=== PATIENT | male | born 1975 | race Caucasian/White ===

== ENCOUNTER 2016-12-11 17:56 | Emergency (ER) | payer SELFPAY ==
[~2016-12-11] VITALS: Ht 170.2 cm; Wt 85.3 kg
[2016-12-11 18:33] VITALS: BP 176/118
--- NOTE | 2016-12-11 20:19 | NUR ---
Patient ambulated to bed 03.
--- NOTE | 2016-12-11 20:25 | NUR ---
Dr. Wiley evaluating patient at bedside.
--- NOTE | 2016-12-11 20:29 | NUR ---
PATIENT IS A 41 Y/O MALE WHO PRESENTS TO THE ED C/O OF HIGH BLOOD PRESSURE. PT STATES THAT HE TOOK TWO TABS OF LOSARTAN 50 MG THIS MORNING AND STATED THAT HE DIDN'T FEEL FINE. PT STATES THAT HE HAS HAD SOME NAUSEA SINCE THIS MORNING. PT DENIES HEADACHE, DENIES CHEST PAIN. PT STATES 0/10 PAIN. PT AAOX4, RR EVEN/UNLABORED. BED REPOSITIONED FOR COMFORT. BED PUT IN LOWEST POSITION. ER MD DR. MENDEZ, WILL CONTINUE TO MONITOR.
[2016-12-11 20:37] VITALS: BP 170/110
--- NOTE | 2016-12-11 20:37 | NUR ---
Patient discharged with v/s stable. Written and verbal after care instructions given and explained. Patient verbalized understanding. Ambulatory with steady gait. All questions addressed prior to discharge. Advised to follow up with PMD.
== END 2016-12-11 20:37 | disposition home or self-care (01) ==
LOC: MED 17:56
DX: I10 Essential (primary) hypertension (principal); F41.9 Anxiety disorder, unspecified
CPT/HCPCS: 99283